=== PATIENT | male | born 1940 | race Caucasian/White ===

== ENCOUNTER → 2018-05-04 16:30 | Outpatient (CLI) | payer MEDICARE ==
[2015-09-11 07:48] VITALS: BMI 24.4
[~2018-05-04 16:30] MED LIST: ASPIRIN325 MG PO; BAYER CHEWABLE81 MG PO; LISINOPRIL5 MG PO; PLAVIX75 MG PO; XALATAN 0.0052.5 ML
[2018-05-04 17:16] LABS: CHOL - HDL RATIO 4.4 ratio (2.3-4.9); LDL-HDL RATIO 2.8 ratio (1.5-3.5)
== END | disposition home or self-care (01) ==
LOC: D.LABREF 16:30
PROVIDERS: Internal Medicine Interventional Cardiology
DX: E78.5 Hyperlipidemia, unspecified (principal)

== ENCOUNTER → 2020-09-26 13:57 | Outpatient (CLI) | payer OTHER ==
[2015-09-11 07:48] VITALS: BMI 24.4
== END | disposition home or self-care (01) ==
LOC: D.US 13:57
PROVIDERS: ATTEND Family Medicine
DX: N50.89 Other specified disorders of the male genital organs (principal); R10.2 Pelvic and perineal pain; R91.8 Other nonspecific abnormal finding of lung field